=== PATIENT | female | born 1985 | race Caucasian/White ===

== ENCOUNTER 2024-03-17 10:11 | Outpatient (CLI) | payer OTHER, SELFPAY ==
--- NOTE | ~2024-03-17 | MMUS_ITS ---
EXAMINATION: MM diagnostic sangeeta BI w akil, US breast LT limited HISTORY: Left breast lump TECHNIQUE: 3-D tomosynthesis images of the breasts were performed and synthetic 2-D images were gener ated. CAD analysis was submitted and interpreted. High resolution limited left breast ultrasound was performed. COMPARISON: None BREAST PARENCHYMAL COMPOSITION:Not Dense. There are scattered areas of fibroglandular density. FINDINGS: MAMMOGRAPHIC FINDINGS: No suspicious mammographic abnormality identified. No mass lesion or distortion seen. No suspicious m icrocalcification. ULTRASOUND: There is a 9 x 5 x 4 mm hypoechoic solid mass in the left subareolar region. Lesion is wider than landon l, mildly irregular. IMPRESSION: 9 x 5 x 4 mm hypoechoic mildly irregular mass in the left subareolar region. Ultrasound-guided biops y advised to establish a histologic diagnosis. BI-RADS category 4, suspicious findings. Reviewed, dictated and finalized at location [facility]. [employer] IMPRESSION: 9 x 5 x 4 mm hypoechoic mildly irregular mass in the left subareolar region. U ltrasound-guided biopsy advised to establish a histologic diagnosis. BI-RADS category 4, suspicious findings.
== END 2024-03-17 10:12 | disposition home or self-care (01) ==
LOC: CHSIMG 10:13
PROVIDERS: PCP Nurse Practitioner; Visit Provider Nurse Practitioner
DX: N63.20 Unspecified lump in the left breast, unspecified quadrant (principal); R92.8 Other abnormal and inconclusive findings on diagnostic imaging of breast
CPT/HCPCS: 76642; 77062; 77066; G0279